=== PATIENT | female | born 1975 | race Caucasian/White ===

== ENCOUNTER 2017-05-30 14:36 | Emergency (ER) | payer OTHER ==
[2017-05-30 14:57] VITALS: BP 119/60
--- NOTE | 2017-05-30 15:34 | UC ---
Respiratory Complaint HPI - HPI Summary HPI Summary: Cough, congestion and hoarse voice for the past 4 days. 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 No Asthma or lung disease. No know fever but she has had chills. The cough is worse at night. - History of Current Complaint Chief Complaint: UCGeneralIllness Stated Complaint: COUGH Time Seen by Provider: 05/30/17 15:20 Hx Obtained From: Patient Hx Last Menstrual Period: ablation and partial hysterectomy ?: No Onset/Duration: Gradual Onset, Lasting Days Timing: Constant Severity Initially: Moderate Severity Currently: Moderate Character: Cough: Productive Aggravating Factors: Deep Breaths, Recumbent Position Alleviating Factors: Upright Position, Spontaneous Resolution Associated Signs And Symptoms: Positive: Chills, URI, Nasal Congestion, Hoarseness. Negative: Dyspnea, Hemoptysis, Dizziness, Calf Pain, Calf Swelling - Allergies/Home Medications Allergies/Adverse Reactions: Allergies Allergy/AdvReac Type Severity Reaction Status Date / Time NSAIDs Allergy See Comment Verified 05/30/17 14:56 Tramadol Allergy CHEST Verified 05/30/17 14:56 PRESSURE, SOB, RASH ENVIRONMENTAL Allergy RASH, Uncoded 05/30/17 14:56 PMH/Surg Hx/FS Hx/Imm Hx Previously Healthy: Yes Other History Of: Negative For: HIV, Hepatitis B, Hepatitis C, Anticoagulant Therapy - Surgical History Surgical History: Yes Surgery Procedure, Year, and Place: GALLBLADDER 2005, [place]. GASTRIC BYPASS, 2008, [facility]. C SECTION, 2010, [facility]. LEFT KNEE 07/2011, [facility]. Left knee, [place]. Left knee, [place]. APPENDECTOMY, 2011, [facility]. Partial Hysterectomy, 07/2015. Tonsillectomy, 07/2015 - Family History Known Family History: Positive: Other - COPD. Negative: Cardiac Disease, Hypertension, Diabetes - Social History Occupation: Employed Full-time Alcohol Use: Rare Substance Use Type: None Smoking Status (MU): Never Smoked Tobacco - Immunization History Most Recent Influenza Vaccination: NOT RECENT Review of Systems ENT: Sinus Congestion Respiratory: Cough All Other Systems Reviewed And Are Negative: Yes Physical Exam Triage Information Reviewed: Yes Appearance: Well-Appearing, No Pain Distress, Well-Nourished Vital Signs: Initial Vital Signs Temp 97.7 F 05/30/17 14:47 Pulse 72 05/30/17 14:47 Resp 18 05/30/17 14:47 BP 119/60 05/30/17 14:47 Pulse Ox 100 05/30/17 14:47 Vital Signs Reviewed: Yes Eyes: Positive: Conjunctiva Clear ENT: Positive: Nasal congestion, TMs normal, Hoarse voice. Negative: Pharynx normal, Pharyngeal erythema, Nasal drainage, TM bulging, TM dull, TM red, Tonsillar swelling, Tonsillar exudate, Trismus, Muffled voice, Sinus tenderness , Uvula midline Neck: Positive: Supple, Nontender, No Lymphadenopathy Respiratory: Positive: Chest non-tender, Lungs clear, Normal breath sounds, No respiratory distress, No accessory muscle use. Negative: Respiratory distress, Decreased breath sounds, Accessory muscle use, Crackles, Rhonchi, Stridor Cardiovascular: Positive: RRR, No Murmur, Pulses Normal, Brisk Capillary Refill Abdomen Description: Positive: Nontender, No Organomegaly, Soft Musculoskeletal: Positive: Strength Intact, ROM Intact, No Edema Neurological: Positive: Alert, Muscle Tone Normal, Fatigued Skin: Negative: rashes UC Diagnostic Evaluation - Laboratory O2 Sat by Pulse Oximetry: 100 Respiratory Course/Dx - Differential Dx/Diagnosis Provider Diagnoses: uri. laryngitis. Discharge - Discharge Plan Condition: Good Disposition: HOME Prescriptions: Acetaminop/Codeine 30 MG TAB* [Tylenol/Codeine 30 MG TAB*] 1 tab PO BEDTIME PRN #10 tab MDD 1 PRN Reason: Cough Benzonatate CAP* [Tessalon 100 MG CAP*] 100 mg PO TID PRN #20 cap PRN Reason: Cough GuaiFENesin DM* [Robitussin DM*] 10 ml PO Q6H PRN #120 ml PRN Reason: Cough Patient Education Materials: Upper Respiratory Infection (ED) Referrals: Trish Porter [Primary Care Provider] - If Needed
== END 2017-05-30 15:25 | disposition home or self-care (01) ==
LOC: UCCORT 14:36
DX: J06.9 Acute upper respiratory infection, unspecified (principal); J04.0 Acute laryngitis; Z88.6 Allergy status to analgesic agent; Z88.5 Allergy status to narcotic agent; Z90.49 Acquired absence of other specified parts of digestive tract; Z98.84 Bariatric surgery status; Z90.711 Acquired absence of uterus with remaining cervical stump
CPT/HCPCS: 99212; G0463

== ENCOUNTER 2017-06-24 16:35 | Emergency (ER) | payer OTHER ==
[2017-06-24 17:20] VITALS: BP 130/68
--- NOTE | 2017-06-24 17:39 | UC ---
Throat Pain/Nasal Nathaniel HPI - HPI Summary HPI Summary: Ongoing congestion, sinus pain, coughing, fatigued. Coughing fits at night. - History of Current Complaint Chief Complaint: UCGeneralIllness Stated Complaint: HEAD CONGESTION/SINUS/SORE THROAT Time Seen by Provider: 06/24/17 17:31 Hx Obtained From: Patient Hx Last Menstrual Period: ablation and partial hysterectomy ?: No Onset/Duration: Gradual Onset, Lasting Weeks - 4-6 Severity: Moderate Cough: Nonproductive Associated Signs & Symptoms: Positive: Dysphagia, Wheezing, Sinus Discomfort, Fever Related History: Seasonal Allergies - Allergies/Home Medications Allergies/Adverse Reactions: Allergies Allergy/AdvReac Type Severity Reaction Status Date / Time NSAIDs Allergy See Comment Verified 06/24/17 17:14 Penicillins Allergy Hives Verified 06/24/17 17:14 Tramadol Allergy CHEST Verified 06/24/17 17:14 PRESSURE, SOB, RASH ENVIRONMENTAL Allergy RASH, Uncoded 06/24/17 17:14 PMH/Surg Hx/FS Hx/Imm Hx Respiratory History: Asthma Other History Of: Negative For: HIV, Hepatitis B, Hepatitis C, Anticoagulant Therapy - Surgical History Surgical History: Yes Surgery Procedure, Year, and Place: GALLBLADDER 2005, [place]. GASTRIC BYPASS, 2008, [facility]. C SECTION, 2010, [facility]. LEFT KNEE 07/2011, [facility]. Left knee, [place]. Left knee, [place]. APPENDECTOMY, 2011, [facility]. Partial Hysterectomy, 07/2015. Tonsillectomy, 07/2015 - Family History Known Family History: Positive: Other - COPD. Negative: Cardiac Disease, Hypertension, Diabetes - Social History Occupation: Employed Full-time Lives: With Family Alcohol Use: Rare Substance Use Type: None Smoking Status (MU): Never Smoked Tobacco Have You Smoked in the Last Year: No - Immunization History Most Recent Influenza Vaccination: no yet Review of Systems ENT: Sore Throat, Nasal Discharge, Sinus Congestion, Sinus Pain/Tenderness Respiratory: Cough Neurological: Headache Is Patient Immunocompromised?: No All Other Systems Reviewed And Are Negative: Yes Physical Exam Triage Information Reviewed: Yes Appearance: Ill-Appearing, Pain Distress - sinus pain., Obese Vital Signs: Initial Vital Signs Temp 97.5 F 06/24/17 17:16 Pulse 85 06/24/17 17:16 Resp 16 06/24/17 17:16 BP 130/68 06/24/17 17:16 Pulse Ox 100 06/24/17 17:16 Vital Signs Reviewed: Yes Eyes: Positive: Conjunctiva Clear ENT: Positive: Pharynx normal, Nasal congestion, TMs normal Neck: Positive: Tenderness @ - left anterior cervical. Respiratory: Positive: Lungs clear, Wheezing - expiratory wheeze with coughing. Cardiovascular Exam: Normal Musculoskeletal Exam: Normal Neurological Exam: Normal Psychological Exam: Normal Skin Exam: Normal Throat Pain/Nasal Course/Dx - Differential Dx/Diagnosis Differential Diagnosis/HQI/PQRI: Otitis Media, Sinusitis, URI Provider Diagnoses: Acute URI. Acute sinusitis. Allergic rhinitis Discharge - Discharge Plan Condition: Stable Disposition: HOME Prescriptions: Cefuroxime 500 MG(NF) 500 mg PO BID #20 tab predniSONE TAB* [Deltasone TAB*] 20 mg PO DAILY #18 tab Patient Education Materials: Upper Respiratory Infection (ED), Sinusitis (ED), Cefuroxime (By mouth), Bronchospasm (ED), Prednisone (By mouth) Referrals: REGINE Rebolledo [Primary Care Provider] - Additional Instructions: [employer] SINUS RINSE: CHECK OUT AT [employer] Saline nasal wash helps with mucous, allergies and congestion. It can be used up to twice a day or only as needed. Use lukewarm tap water. It does not have to be sterilized or distilled water. Do 1/3 on each side and snort out of both nostrils. Repeat the process with 1/6 of the bottle on each side with snorting in between to finish the solution in the bottle For the fluticasone, tilt your head down to spray the medication back into the back of the nose. NASAL SPRAYS AND DROPS: Afrin in the PUMP/ MIST bottle (Get generic 12 hours nasal decongestant spray). Tilt your head down and look at the floor while doing a strong sniff with the spray. Decongestant nasal sprays and drops often give dramatic relief from congestion. They are often recommended for patients with sinus infection to assist with sinus drainage. Persons with high blood pressure should consult the doctor before using these nasal sprays. Afrin and Santana-Synephrine are common [id number] preparations. They should not be used for more than five days, as "rebound" congestion can occur - - the congestion flares as the drug wears off. A way of dealing with this rebound congestion problem is to medicate only one nostril each time, allowing the other nostril to recover from the medicine' s effects. When you no longer need the drug during the day, spray only one nostril each night. This helps you sleep well without severe rebound congestion. Call the doctor if you develop severe headache, palpitations, or chest pain.
[2017-06-24] MEDS ORDERED: predniSONE TAB* 20 MG PO ONE (17:41)
[2017-06-24] MEDS ORDERED: Ketorolac INJ* 60 MG/2 ML VIAL IM ONE (17:41)
[2017-06-24] MEDS ORDERED: ceFUROXime TAB(*) 250 MG PO ONE (17:41)
[2017-06-24] MEDS ORDERED: Albuterol HFA INHALER* 8 gm MDI INH ONE (17:41)
== END 2017-06-24 18:17 | disposition home or self-care (01) ==
LOC: UCCORT 16:35
DX: J06.9 Acute upper respiratory infection, unspecified (principal); J01.90 Acute sinusitis, unspecified; J30.9 Allergic rhinitis, unspecified; E66.9 Obesity, unspecified; Z88.6 Allergy status to analgesic agent; Z88.5 Allergy status to narcotic agent; Z88.0 Allergy status to penicillin
CPT/HCPCS: 99213; A9270-GY; G0463; J1885; J7512

== ENCOUNTER 2018-01-31 05:57 | Day surgery (SDC) | payer OTHER ==
--- NOTE | 2018-01-25 14:23 | HP ---
HISTORY AND PHYSICAL: DATE OF SURGERY: 01/31/18 SURGEON: Jayda Saini MD * (DICTATED BY ROBERT BROWN) PROCEDURE: Left knee arthroscopy with partial lateral meniscectomy, possible chondroplasty, possible synovectomy. CHIEF COMPLAINT: Left knee pain. HISTORY OF PRESENT ILLNESS: Ms. Tanner is a 42-year-old female with continued complaints of left knee pain and MRI confirms a meniscal tear. She elected to proceed with surgery. PAST MEDICAL HISTORY: Depression, anxiety, and GERD. PAST SURGICAL HISTORY: Gastric bypass, left knee arthroscopy x3, , appendectomy, tonsillectomy, cholecystectomy, and sinus surgery. CURRENT MEDICATIONS: 1. Escitalopram 20 mg daily. 2. Mirtazapine 30 mg q.h.s. 3. Propranolol 60 mg q.h.s. 4. Topiramate 100 mg daily. 5. Omeprazole 20 mg daily. ALLERGIES: TRAMADOL causing hives and racing heart, and IBUPROFEN. FAMILY HISTORY: COPD, heart disease, esophageal and stomach cancer. SOCIAL HISTORY: She is a 42-year-old female, she lives with her girlfriend and her children. She does not smoke or use drugs. Uses alcohol rarely. REVIEW OF SYSTEMS: A complete 14-point review of systems was reviewed with the patient and was positive for asthma and GERD. She denies history of DVT, PE, hepatitis, HIV, or anesthesia problems. PHYSICAL EXAMINATION GENERAL: She is well developed, well nourished in no acute distress. VITAL SIGNS: She stands 5 feet 7 inches tall, weighs 298 pounds. Her blood pressure is 120/82, heart rate is 76. HEENT: Normocephalic and atraumatic. NECK: Supple. No palpable lymph nodes. PULMONARY: The lungs are clear to auscultation bilaterally. CARDIO: Regular rate and rhythm. Strong S1 and S2. ABDOMEN: Soft, nontender, and nondistended. NEUROLOGICAL: She is alert and oriented x3. MUSCULOSKELETAL: Left lower extremity: The skin is intact. There are no open wounds or abrasions. There is a moderate joint effusion. Some tenderness over the lateral joint line, 10 to 120 degrees of flexion, positive Kell's, 2+ dorsalis pedis pulses and intact sensation. ASSESSMENT AND PLAN: Ms. Tanner is a 42-year-old female with continued complaints of left knee pain and MRI confirms a meniscal tear. She elected to proceed with left knee arthroscopy with partial meniscectomy, possible chondroplasty, and possible synovectomy. The surgery is scheduled for 01/31/[address] Saini discussed the risks and the benefits of surgery at today's visit and all of her questions were answered. She will follow up with Dr. Saini 2 weeks after the surgery. ROBERT BROWN [id number]/[facility] #: [id number] MTDSavanna
[2018-01-31] MEDS ORDERED: Famotidine IV* 10 MG/ML 2 ML (20 mg) IV ONE (06:00)
[2018-01-31] MEDS ORDERED: ceFAZolin 2 GM PREMIX (*) 2 GM/50 ML BAG IVPB ONE (06:09)
[2018-01-31] MEDS ORDERED: Famotidine IV* 10 MG/ML 2 ML (20 mg) ONE (06:09)
[2018-01-31] MEDS ORDERED: ceFAZolin 1 GM in Dextrose (*) 1 GM/50 ML BAG IVPB ONE (06:09)
[2018-01-31] MEDS ORDERED: Buffered Lidocaine 0.9% SYRIN* 5 ML/SYR SYRINGE ONE (06:10)
[2018-01-31] MEDS ORDERED: Bupivacaine 0.5% SDV PF* 30ML VIAL ONE (07:00)
[2018-01-31] MEDS ORDERED: EPINEPHRINE 1 MG/ML 1 ML VIAL ONE (07:00)
[2018-01-31] MEDS ORDERED: methylPREDNISolone ACETATE 80* 80 MG/ML 1 ML VIAL ONE (07:00)
[2018-01-31] MEDS ORDERED: Midazolam* 1 MG/ML 5 ML VIAL (5 MG) ONE (07:26)
[2018-01-31] MEDS ORDERED: fentaNYL* 50 MCG/ML 2 ML VIAL (100 MCG VIAL) ONE (07:26)
[2018-01-31] MEDS ORDERED: Dexamethasone IV* 4 MG/ML 1 ML (4 MG) ONE (08:03)
[2018-01-31] MEDS ORDERED: Ketorolac INJ* 30 MG/ML 1 ML VIAL ONE (08:03)
[2018-01-31] MEDS ORDERED: DiMENhydriNATE IV* 50 MG/ML VIAL ONE (08:03)
[2018-01-31] MEDS ORDERED: Propofol* 10 MG/ML 20 ML BTL IV PUSH ONE (08:03)
[2018-01-31] MEDS ORDERED: Lidocaine 2% PF * 5 ML VIAL ONE (08:03)
[2018-01-31] MEDS ORDERED: Naloxone* 0.4 MG/ML 1 ML VIAL IV PRN (08:18)
[2018-01-31] MEDS ORDERED: DiMENhydriNATE IV* 50 MG/ML VIAL IV PUSH ONE (08:20)
[2018-01-31] MEDS ORDERED: HYDROmorphone INJ* 0.5 MG/0.5 ML SYRINGE ONE ×2 (08:35→09:16)
[2018-01-31] MEDS: HYDROmorphone INJ* 0.5 MG/0.5 ML SYRINGE IV PRN ×3 (08:40→09:16)
[2018-01-31] MEDS ORDERED: oxyCODONE/Acetamin 5/325 MG* TAB ONE (08:43)
[2018-01-31] MEDS: oxyCODONE/Acetamin 5/325 MG* TAB PO PRN ×2 (08:44→08:45)
[2018-01-31 09:43] VITALS: BP 112/72
[2018-01-31] MEDS ORDERED: Buffered Lidocaine 0.9% SYRIN* 5 ML/SYR SYRINGE INTRADERM ONE (10:26)
--- NOTE | 2018-02-01 11:43 | OP ---
OPERATIVE REPORT: DATE OF OPERATION: 01/31/18 - [facility] DATE OF : 79 ATTENDING SURGEON: Jayda Saini MD [employer]ICE ATTENDANT: ROBERT Simon Mr. Herring did help throughout the procedure with preparation of the leg, wound retraction, manipulation of the knee and wound closure. ANESTHESIOLOGIST: Dr. Hernandez. ANESTHESIA: General. PRE-OP DIAGNOSIS: Left knee pain with lateral meniscal tear and mild to moderate osteoarthritis. POST-OP DIAGNOSIS: Left knee lateral meniscal tear and moderate to severe degenerative osteoarthritis in the patellofemoral compartment. OPERATIVE PROCEDURE: Left knee arthroscopy with partial lateral meniscectomy and patellofemoral chondroplasty. COMPLICATIONS: None. ESTIMATED BLOOD LOSS: Less than 25 cc. SPECIMEN: None. BRIEF HISTORY/INDICATION: Ms. Tanner is a 42-year-old female with continued left knee pain and mechanical symptoms in the left knee along the lateral joint line. A repeat MRI did indicate there was a lateral meniscal tear. The patient failed conservative treatment with antiinflammatories, pain medication and intraarticular injection. Due to continued pain and decreased quality of life, she elected to undergo left knee arthroscopy with partial lateral meniscectomy, possible chondroplasty, possible synovectomy. Informed consent was obtained from the patient. She understood the risk of surgery included but were limited to bleeding, infection, damage to nearby structures, continued pain , need for further surgery, retear of the meniscus, progression of arthritis, stroke, heart attack, blood clot and . She wished to proceed. INTRAOPERATIVE FINDINGS: Intraoperatively, the patient was noted to have grade 3 and 4 Outerbridge cartilage changes in the patellofemoral compartment, grade 2 and 3 Outerbridge cartilage changes in the medial compartment. She did have a small radial tear along the anterior and posterior horn of the lateral meniscus. She had significant amount of inflammatory tissue along the anteromedial and anterolateral joint line. DESCRIPTION OF PROCEDURE: Ms. Tanner was identified in the preanesthesia unit. Her left lower extremity was marked as the operative side. Informed consent was signed and placed in the chart. The patient was taken to the operating room and placed under general anesthesia without difficulty. Left lower extremity was prepped and draped in the usual sterile fashion. Preop time -out was made to correctly identify the patient side and site. Appropriate perioperative antibiotics were given within one hour of incision. A standard anterolateral portal incision was made with a 10-blade and carried down through the capsule. Trocar was introduced. Light and water sources were turned on. A tour of the knee joint was performed. Suprapatellar pouch had no obvious abnormality. Patellofemoral compartment showed grade 3 and 4 Outerbridge cartilage changes in the patellofemoral compartment. Grade 2 and 3 Outerbridge cartilage changes in the medial compartment. There was significant amount of anterior synovitis. The medial meniscus showed no obvious meniscal tear. Lateral meniscus had a radial tear with some anterior displacement of a fragment along the posterior horn and anterolateral horn. Lateral gutter and medial gutter showed no loose body or plica. ACL and PCL appeared to be intact. Under direct visualization, a medial portal incision was made. Probe was introduced and a second tour of the knee joint was performed. No additional findings were noted. Radiofrequency ablation wand and shaver were used to remove some inflammatory tissue along the anterior joint line. Radiofrequency ablation wand was used to smooth any cartilage flapping along the patella in a conservative fashion. Next, a straight bitter and shaver were used to perform partial lateral meniscectomy. A radial tear anteriorly and along the posterior horn was removed in the red-white zone. Further probing of the lateral meniscus showed no additional tears or loose fragments. The knee was copiously irrigated with sterile saline. All instruments were removed. Incisions were closed using 3-0 nylon suture. Intraarticular injection of 80 mg of Depo-Medrol and 6 cc 0.25% Marcaine was placed in the knee joint. The patient tolerated the procedure well and had no complications. [id number]/[facility] #: [id number] [facility] CENTERSavanna
== END 2018-01-31 10:23 | disposition home or self-care (01) ==
LOC: OR 05:57
PROVIDERS: ATTEND Orthopaedic Surgery Adult Reconstructive Orthopaedic Surgery
DX: M23.204 Derangement of unspecified medial meniscus due to old tear or injury, left knee (principal); M17.12 Unilateral primary osteoarthritis, left knee; F41.8 Other specified anxiety disorders; K21.9 Gastro-esophageal reflux disease without esophagitis; E66.01 Morbid (severe) obesity due to excess calories
CPT/HCPCS: 87070; 87073; 87205; A9270-GY; J0690; J1040; J1100; J1170; J1240; J1885; J2250; J2704; J3010

== ENCOUNTER 2018-04-25 07:45 | Day surgery (SDC) | payer OTHER, MEDICAID ==
[~2018-04-25 07:45] MED LIST: Buffered Lidocaine 0.9% SYRIN* 5 ML/SYR SYRINGE INTRADERM ONE; Sodium Citrate/Citric Acid* 15 ML UDC PO ONE
[2018-04-25] MEDS ORDERED: Sodium Citrate/Citric Acid* 15 ML UDC ONE (07:50)
[2018-04-25] MEDS ORDERED: Clindamycin 900 MG/D5W BAG(*) 900 MG/50 ML BAG IVPB ONE (07:50)
[2018-04-25] MEDS ORDERED: fentaNYL* 50 MCG/ML 2 ML VIAL (100 MCG VIAL) ONE ×3 (07:59→10:32)
[2018-04-25] MEDS ORDERED: Midazolam* 1 MG/ML 2 ML VIAL (2 MG) ONE (07:59)
[2018-04-25] MEDS ORDERED: methylPREDNISolone ACETATE 80* 80 MG/ML 1 ML VIAL ONE (08:16)
[2018-04-25] MEDS ORDERED: EPINEPHRINE 1 MG/ML 1 ML VIAL ONE (08:17)
[2018-04-25] MEDS ORDERED: Bupivacaine 0.5% SDV PF* 30ML VIAL ONE (08:17)
[2018-04-25] MEDS ORDERED: Propofol* 10 MG/ML 20 ML BTL IV PUSH ONE (08:40)
[2018-04-25] MEDS ORDERED: Lidocaine 2% PF * 5 ML VIAL ONE (08:41)
[2018-04-25] MEDS ORDERED: Dexamethasone IV* 4 MG/ML 1 ML (4 MG) ONE (08:48)
[2018-04-25] MEDS ORDERED: Naloxone* 0.4 MG/ML 1 ML VIAL IV PRN (09:12)
[2018-04-25] MEDS: fentaNYL* 50 MCG/ML 2 ML VIAL (100 MCG VIAL) IV PRN ×3 (09:52→10:33)
[2018-04-25] MEDS ORDERED: oxyCODONE/Acetamin 5/325 MG* TAB ONE ×2 (10:10→10:11)
[2018-04-25 11:16] VITALS: BP 122/65
--- NOTE | 2018-04-26 08:01 | OP ---
DATE OF OPERATION: 04/25/18 - [facility] DATE OF : 79 SURGEON: Jayda Saini MD STUDIO CONTROL OPERATOR: ROBERT Simon. Mr. Herring did help throughout the procedure with preparation of the leg, manipulation of the knee and wound closure. ANESTHESIOLOGIST: Dr. Pereyra. ANESTHESIA: General. PRE-OP DIAGNOSIS: Severe right knee pain with medial and lateral meniscal tear. POST-OP DIAGNOSES: Right knee lateral meniscal tear, moderate arthritic changes in the medial and patellofemoral compartment. OPERATIVE PROCEDURE: Right knee arthroscopy with partial lateral meniscectomy, medial and patellofemoral chondroplasty, anterior synovectomy. COMPLICATIONS: None. ESTIMATED BLOOD LOSS: Less than 25 cc. SPECIMENS: None. BRIEF HISTORY/INDICATIONS: Ms. Tanner is a 42-year-old female with 2 months of increasingly severe right knee pain. She thought she had mechanical symptoms consistent with meniscal tear. She had swelling. She failed conservative treatment and wished to proceed with right knee arthroscopy. Physical exam was consistent with meniscal tear and radiograph showed some minimal degenerative changes. Informed consent was obtained from the patient. She understood the risks of surgery included but were not limited to bleeding, infection, damage to nearby structures, continued pain, need for further surgery, retear of the meniscus, stroke, heart attack, blood clot, and . She wished to proceed. INTRAOPERATIVE FINDINGS: Intraoperatively, the patient was noted to have significant amount of anterior synovitis. She had cartilage sprain and flapping in the medial femoral condyle as well as the medial and lateral patellar facet. She had a radial tear in the posterior horn of the lateral meniscus. DESCRIPTION OF PROCEDURE: Ms. Tanner was identified in the preanesthesia unit. Her right lower extremity was marked as the correct operative side. Informed consent was signed and placed in the chart. The patient was taken to the operating room and placed under general anesthesia. Right lower extremity was prepped and draped in the usual sterile fashion. Preop time-out was made to correctly identify the patient's side and site. Appropriate perioperative antibiotics were given within 1 hour of incision. A standard 0.5 cm inferolateral portal incision was made with a 10 blade and carried down to the capsule. Trocar was introduced. As soon as light and water sources were turned on, there was immediate visualization of the suprapatellar pouch. A tour of the knee joint was performed. Suprapatellar pouch had no obvious abnormality. Patellofemoral compartment showed frayed and fissured cartilage along the medial and lateral patellar facets with cartilage flapping. These were grade 3 and 4 Outerbridge cartilage changes. The medial gutter showed no loose body or plica. Medial compartment showed no obvious meniscal tear. There was a large area of cartilage flapping with exposed subchondral bone along the medial femoral condyle. ACL and PCL appeared to be intact. The knee was placed in a figure-4 position. There was a displaced radial type tear of the posterior horn of the lateral meniscus that was visible. There were minimal degenerative changes in the compartment. Lateral gutter showed no loose bodies or plica. Under direct visualization, a medial portal incision was made. Probe was introduced and a second tour of the knee joint was performed. No additional findings were noted. The radiofrequency ablation wand and shaver were used to perform an anterior synovectomy. A large amount of the anterior synovitis was carefully excised. This greatly improved visualization of the knee joint. Radiofrequency ablation wand and shaver were then used to perform a conservative chondroplasty along the medial patellar and lateral patellar facet , any frayed or flapping cartilage was carefully smoothed. In the medial compartment, there was a large cartilage flap, which was carefully smoothed with the radiofrequency ablation wand. The knee was placed in the figure-4 position. Straight biter and shaver were used to perform partial lateral meniscectomy. A smooth border of the posterior horn of the lateral meniscus was obtained. At this point, the probe was introduced and both medial and lateral meniscus were probed carefully for any additional tears, none were noted. The knee was copiously irrigated with sterile saline. The instrument was removed. Incisions were closed using 3-0 nylon suture. Intraarticular injection of 80 mg of Depo-Medrol and 6 cc of 0.25% Marcaine was placed in the knee joint. The patient's incisions were covered using sterile Xeroform, 4x4's , and Webril. Jethro wrap and cold pack were placed over this. The patient's anesthesia was reversed without difficulty. She was taken to the PACU in stable condition. Intended weightbearing will be weightbearing as tolerated. Intended DVT prophylaxis will be Lovenox for 2 weeks. [id number]/[facility] #: [id number] [facility] ISLANDaSvanna
== END 2018-04-25 11:14 | disposition home or self-care (01) ==
LOC: OR 07:45
PROVIDERS: ATTEND Orthopaedic Surgery Adult Reconstructive Orthopaedic Surgery
DX: S83.241A Other tear of medial meniscus, current injury, right knee, initial encounter (principal); M25.461 Effusion, right knee; S83.261A Peripheral tear of lateral meniscus, current injury, right knee, initial encounter; M25.561 Pain in right knee; Z88.8 Allergy status to other drugs, medicaments and biological substances; X58.XXXA Exposure to other specified factors, initial encounter
CPT/HCPCS: A9270-GY; J1040; J1100; J2250; J2704; J3010

== ENCOUNTER 2018-10-17 12:21 | Emergency (ER) | payer BC, MEDICAID, OTHER ==
--- OUTSIDE RECORDS SUMMARY | 2018-10-17 12:32 | XMS REPORT | Continuity of Care Document ---
:1975 External Reference #:[id number] Author Name Robles Meadows DO, MPH Address [address] [place] [address], [address] [place] [address] Care Team Providers Name Role Phone Felipa Trivedi M.D. 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 Primary Care Physician Unavailable Payers Date Identification Numbers Payment Provider Subscriber Policy Number: [id number] For Life Ammy Tanner PayID: [id number] [address] [place] [address] Policy Number: [id number] Medicaid [place] Ammy Tanner PayID: [id number] [address] [place] [address] Advance Directives Description No Information Available Problems Description No Information Family History Date Family Member(s) Observation Comments Father due to Esophagus Cancer () Mother 70 Children 3 Siblings 2 Social History Type Date Description Comments Sex Unknown Marital Status Lives With Roommate Lives With Children 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 ETOH Use Occasionally consumes beer Tobacco Use Start: Unknown Patient is a current smoker, smokes some days Recreational Drug Use Denies Drug Use Smoking Status Reviewed: 09/25/18 Patient is a current smoker, smokes some days Allergies, Adverse Reactions, Alerts Date Description Reaction Status Severity Comments 09/13/2018 Penicillin Active 09/13/2018 Tramadol Active 09/13/2018 Ibuprofen Active 09/13/2018 Dramamine Active Medications Medication Date Status Form Strength Qnty SIG Indications Ordering Provider Nucynta 09/25/ Active Tablets 50mg 30tabs si by Nanda Meadows mouth DO Robles, every 12 MPH hours as directed chronic pain patient Omeprazole / Active Capsules 20mg si by Unknown 0000 DR mouth every day as directed Escitalopram / Active Tablets 20mg 1 by mouth Unknown Oxalate 0000 at night Mirtazapine 00/00/ Active Tablets 30mg 1 by mouth Unknown 0000 every night Propranolol HCL 00/ Active Tablets 60mg 1 by mouth Unknown 0000 every day Topiramate 0000/ Active Tablets 100mg 60tabs 1 by mouth Unknown 0000 every night Oxycodone HCL 09/13/ Hx Tablets 5mg 45tabs 1 by mouth Abdiel, 2019 - every 8 DO Robles, 09/25/ hours as MPH 2019 directed Immunizations Description No Information Available Vital Signs Date Vital Result Comment 09/25/2018 9:38am BP Systolic 132 mmHg BP Diastolic 84 mmHg Heart Rate 86 /min Respiratory Rate 20 /min Height 67 inches 5'7" Weight 312.00 lb Pain Level 9 Pain at this time. Pain Level With Medicine 9 on average with meds Pain Level Without Medicine 10 05/08 without meds BMI (Body Mass Index) 48.9 kg/m2 09/13/2018 9:15am BP Systolic 128 mmHg BP Diastolic 78 mmHg Heart Rate 76 /min Respiratory Rate 20 /min Height 67 inches 5'7" Weight 310.00 lb Pain Level 9 Pain at this time. Pain Level Without Medicine 10 05/08 without meds BMI (Body Mass Index) 48.5 kg/m2 Results Description No Information Available Procedures Description No Information Available Encounters Description No Information Available Plan of Treatment 09/13/2018 - Robles Meadows DO, MPHG89.29 Other chronic painComments:Chronic Intractable Pain. Symptoms and complaints discussed and reviewed today. Begin trial of adequate and appropriate Opioid Pain Management as well as non-opioid treatment options - New Medications listed below.M54.5 Low back painComments: Chronic Intractable Pain. Symptoms and complaints discussed and reviewed today. Begin trial of adequate and appropriate Opioid Pain Management as well as non- opioid treatment plan - New Medications listed below.M25.561 Pain in right kneeComments:Chronic Intractable Pain. Symptoms and complaints discussed and reviewed today. Begin trial of adequate and appropriate Opioid Pain Management as well as non-opioid treatment plan - New Medications listed below.M25.562 Pain in left kneeComments:Symptoms and complaints discussed and reviewed today. Begin adequate and appropriate medical pain Management - New Medications listed below.F17.210 Nicotine dependence, cigarettes, uncomplicatedComments:Patient encouraged to continue to try to stop smoking, considering their co-morbidities and to follow up with their PCP. Informed that smoking affects healing, the metabolism of medications in a negative way and interferes with pain receptors. Pain is directly and negatively effected by smoking.Z13.31 Encounter for screening for depressionComments:PHQ-9 Depression Screen administered today, results were Positive at this time. Followed by PCP. Will follow as pertains to their pain. Patient seems to be stable today. Reassurance and counseling. 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 ~I_A urine drug test (UDT) was ordered for this patient and collected on site today. Creatinine has been ordered as well for specimen validity, not for kidney function. Preliminary UDT results are not final and should not be used to determine patient care or plan of treatment. Initially a qualitative immunoassay screen will be done. Any inconsistent or positive findings will be further tested with a more comprehensive quantitative confirmation LCMS study. It is part of the treatment process of prescribing controlled substances and is considered standard of care.~i_Z71.89 Other specified counselingComments:New patient counseled in regards to office practice. They were educated about our answering services. What to do if they should have to visit the ER or have any adverse reactions to medications we prescribe. Patient understands that they have to fill his prescription at one pharmacy. If there is a change they must call us and let us know what new pharmacy they will be using. They understand and agree that they must present within 24 hours of a phone call for a random urine screen and a pill count.Patient understands that if the medication needs a prior authorization that it can take up to 72 hours to complete. Opioid Risk Tool (O.R.T.) was used in this patient's initial in take. (see EMR for complete scanned document) Patient Health History, and Patient Pain Assessment from New Patient packetreviewed and scanned into EMR as well.Z71.3 Dietary counseling and surveillanceComments:Regular, small, nutritious meals higher in protein encouraged spaced evenly throughout the day. Count calories. Keep a food log. Hydrate.AllNew Medication:Oxycodone HCL 5 mg - 1 by mouth every 8 hours as directedComments:Chronic intractable pain - Begin trial of adequate and appropriate Opioid Pain Management - New Medications listed below; injection therapy, osteopathic manipulation, PT / modalities, and consults as needed to manage chronic pain.Non - opioid pain management discussed and options provided.Side effectsdiscussed; anticipatory guidance given. Patient clearly understand and agree with all medical treatments and suggestions. All medicines prescribed are adequate and appropriate for this patient's complaint of pain, medical history, physical, and personal goals.Goals of Treatment are to provide adequateand appropriate multidisciplinary medical pain management to increase/ maintain patient's quality oflife and functionality while maintaining satisfactory side effect profile and minimizing longterm end-organ damage. Importance of regular nutrition throughout the day discussed.Activity as toleratedContinue with PCP
--- OUTSIDE RECORDS SUMMARY | 2018-10-17 12:32 | XMS REPORT | Continuity of Care Document ---
:1975 External Reference #:[id number] Author Name Robles Meadows DO, MPH Address [address] [place] [address], [address] [place] [address] Care Team Providers Name Role Phone Felipa Trivedi M.D. 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 Primary Care Physician Unavailable Payers Date Identification Numbers Payment Provider Subscriber Policy Number: [id number] For Life Ammy Tanner PayID: [id number] [address] [place] [address] Policy Number: [id number] Medicaid [place] Ammy Tanner PayID: [id number] [address] [place] [address] Advance Directives Description No Information Available Problems Description No Information Family History Date Family Member(s) Observation Comments Father due to Esophagus Cancer () Mother 70 Children 3 Siblings 2 Social History Type Date Description Comments Sex Unknown Marital Status Lives With Roommate Lives With Children 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 Symptoms and complaints discussed and reviewed today. No significant changes in physical findings. Continue current medical pain management.M54.5 Low back painComments:Chronic. Symptoms and complaints discussed and reviewed today.No changes in physical findings. Patient is stable and comfortable when current medical therapy is rendered.M25.561 Pain in right kneeComments:Chronic.Symptoms and complaints discussed and reviewed today. No significant changes in physical findings. Continue current medical pain management.M25.562 Pain in left kneeComments:Chronic.Symptoms and complaints discussed and reviewed today. No significant changes in physical findings. Continue current medical pain management.Z79.891 [facility] (current) use of opiate analgesicNew Labs:Urine Drug Screen, Ordered: 09/25/18Comments:Urine drug screen sample taken today to monitor opiate use and to monitor use of illicit substances.Will discuss results at next appointment.The following tests were ordered:6 AM, AMPH, CARLEY, STARLA, BUP, CARIS, COCM, COT, ETG, FENT, MCSHSG, OPI, OXY, PCP, TAPEN, XTSY, ZOLP. ~I_A urine drug test(UDT) was ordered for this patient and collected on site today. Creatinine has been ordered as wellfor specimen validity, not for kidney function. Preliminary UDT results are not final and should not be used to determine patient care or plan of treatment. Initially a qualitative immunoassay screenwill be done. Any inconsistent or positive findings will be further tested with a more comprehensive quantitative confirmation LCMS study. It is part of the treatment process of prescribing controlledsubstances and is considered standard of care.~i_Z71.89 Other specified counselingComments: Patient counseled to not use substances for pain relief other than those prescribed, to follow directions and to take medications only as they are prescribed.Reviewed Medication Agreement and requirements for patient to continue receiving opioid therapy. Patient clearly understands and agrees. I will perform confirmatory labs and monitor closely. ~B_She was advised to stop the medication and tobring it with her to the appointment today. Patient did not bring her medication, Oxycodone 5mg withher. " I totally forgot to bring my medication, I walked out of the house without it." Patient will NOT get any medication until she returns her Oxycodone medication.~b_AllNew Medication:Nucynta 50 mg - si by mouth every 12 hours as directed chronic pain patientComments:All above symptoms and complaints discussed as well as diagnoses reviewed.Continue trial of opioid pain management - note changes below ; injection therapy, osteopathic manipulation (OMT), PT / modalities, and consults as needed to manage chronic pain.Side effects discussed; anticipatory guidance given. Patient clearly understands and agrees with all medical treatments and suggestions. All medicines prescribed are adequate and appropriate for this patient's complaint of pain, medical history, physical, and personal goals.Goals of Treatment are to provide adequate and appropriate multidisciplinary medical pain management to increase/ maintain patient's quality of life and functionality while maintaining satisfactory side effect profile and minimizing manager terminal end-organ damage. Activity as toleratedContinue with PCP
--- OUTSIDE RECORDS SUMMARY | 2018-10-17 12:33 | XMS REPORT | Continuity of Care Document ---
:1975 External Reference #:[id number] Author Name Chi Flores MD Address [address] [place] [address] Care Team Providers Name Role Phone Felipa Trivedi M.D. 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 Primary Care Physician Unavailable Payers Date Identification Numbers Payment Provider Subscriber Policy Number: [id number] [facility] Name: [employer] [address] PayID: [id number] [place] [address] Policy Number: [id number] Medicaid Neetu Darling PayID: [id number] [address] [place] [address] Advance Directives Description No Information Available Problems Date Description Provider Status Onset: 02/01/2012 Radial styloid tenosynovitis Thai Cornelius MD, FACS Active Onset: 08/16/2015 Knee pain Ori Baig M.D. Active Onset: 08/16/2015 Chondromalacia of patella Ori Baig M.D. Active Onset: 07/13/2016 Anemia Valerio Dowell DO Active Onset: 07/13/2016 Cobalamin deficiency Valerio Dowell DO Active Onset: 07/13/2016 Iron deficiency anemia Valerio Dowell DO Active Onset: 07/13/2016 Acute gastritis Valerio Dowell DO Active Onset: 08/14/2017 Closed fracture of phalanx of Ori Baig M.D. 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 Hand Dominance Right-handed Tobacco Use Start: Unknown End: Quit Unknown ETOH Use Rarely consumes alcohol Recreational Drug Use Never Used Drugs Tobacco Use Start: Unknown End: Patient is a former Unknown smoker Smoking Status Reviewed: 09/24/18 Patient is a former smoker Allergies, Adverse Reactions, Alerts Date Description Reaction Status Severity Comments 02/01/2012 Tramadol can't breath Active 10/11/2015 NSAIDs Active gastric bypass Medications Medication Date Status Form Strength Qnty SIG Indications Ordering Provider Gabapentin 09/25/19 Active Capsules 100mg 90cap take 1 J41.0 Kheti, 19 s tablet MD Chi three times a day. Advair Diskus 09/24/19 Active Aerosol 100-50mcg 1disk 1 Kheti, 19 /Dose us inhalation MD Chi twice daily, please rinse your mouth after every use. Topiramate Active Tablets 100mg 1 by mouth Unknown 00 at bedtime Propranolol HCL Active 50mg 1 Tab Daily Unknown 00 Mirtazapine Active Tablets 30mg 1 Tab Daily Compagni, 00 ROBERT Chambers Escitalopram Active Tablets 20mg 1 Tab by Dill, Oxalate 00 mouth daily MD Una Omeprazole Active Capsules 20mg 1 by mouth Unknown 00 DR at bed Acetaminophen-C 09/03/19 Hx Tablets 300-60mg 28tab Take 1 Kheti, odeine 19 - s tablet MD Chi 09/24/19 twice a day 19 as needed for cough. Doxycycline 09/02/19 Hx Capsules 100mg 14cap take 1 Kheti, Monohydrate 19 - s tablet MD Chi Unknown twice a day for 7 days. Gabapentin 08/20/19 Hx Capsules 100mg 90cap take 1 J41.0 Kheti, 19 - s tablet MD Chi Unknown three times a day. [place] 10/10/19 Hx Tablets 5-325mg 20tab 1 tab by Pompo, 18 - s mouth every Ori, 12/19/19 6 hours as M.D. 18 needed pain [place] 08/14/19 Hx Tablets 5-325mg 20tab 1 tab by Pompo, 18 - s mouth every Ori, 10/10/19 6 hours as M.D. 18 needed pain Voltaren 11/15/19 Hx Gel 1% 100gm apply to Pompo, 16 - affected Ori, 07/27/20 area daily M.D. 16 Meloxicam 10/06/19 Hx Tablets 15mg 60tab 1 by mouth Pompo, 16 - s every day Ori, 10/11/19 M.D. 16 [place] 09/01/19 Hx Tablets 5-325mg 60tab 1 tab by Pompo, 16 - s mouth every Ori, Unknown 8 hours M.D. needed for pain Percocet Hx Tablets 10-325mg Unknown 08/16/19 16 Citracal Hx Tablets Unknown Maximum 08/16/19 16 Multivitamins Hx Capsules Unknown 08/16/19 16 Prilosec Hx Capsules 20mg Unknown 00 - DR 08/16/19 16 Prozac Hx Capsules 40mg Unknown 08/16/19 16 Tylenol Hx Tablets 325mg as needed Unknown - 09/13/19 18 Venlafaxine HCL Hx Tablets 150mg 1 Tab Daily Unknown ER 00 - ER 24HR Unknown Lyrica Hx 100mg 1 Tab Daily Unknown 08/14/19 18 Vitamin Hx I Tab Daily Unknown B-Complex 100 00 - Unknown Bupropion HCL Hx Tablets 150mg 1 Tab Daily VISHAL Fontana (XL) 00 - ER 24HR Trish, 08/14/19 PA 18 Acetaminophen-C Hx Tablets 300-30mg 2 by mouth Unknown odeine #3 00 - every 6 09/04/19 hours as 18 needed. Max Dose 8 Cetirizine HCL Hx Tablets 10mg 1 Tab daily Monse Espinoza MD 05/22/20 18 Medications Administered in Office Medication Date Status Form Strength Qnty SIG Indications Ordering Provider Euflexxa 2mL Administered Injection Pompo, prefilled 018 Katrin Rehman syringe Euflexxa 2mL Administered Injection Murray, prefilled 018 Isabella S., syringe RPAC Euflexxa 2mL Administered Injection Pompo, prefilled 018 Katrin Rehman syringe Immunizations Description No Information Available Vital Signs Date Vital Result Comment 09/24/2018 8:54am BP Systolic Sitting Left Arm 118 mmHg BP Diastolic Sitting Left Arm 86 mmHg Respiratory Rate 18 /min Height 67 inches 5'7" Weight 314.00 lb BMI (Body Mass Index) 49.2 kg/m2 BSA (Body Surface Area) 2.45 m2 Dequincy body weight in kilograms 61 kg 08/20/2018 3:11pm BP Systolic Sitting Right Arm 121 mmHg BP Diastolic Sitting Right Arm 76 mmHg Heart Rate 73 /min Respiratory Rate 16 /min Height 67 inches 5'7" Weight 308.00 lb BMI (Body Mass Index) 48.2 kg/m2 BSA (Body Surface Area) 2.43 m2 Dequincy body weight in kilograms 61 kg O2 % BldC Oximetry 99 % 12/25/2017 2:13pm BP Systolic 132 mmHg BP Diastolic 82 mmHg Body Temperature 98.8 F Heart Rate 77 /min Respiratory Rate 13 /min Height 67 inches 5'7" Weight 294.00 lb BMI (Body Mass Index) 46.0 kg/m2 BSA (Body Surface Area) 2.38 m2 Dequincy body weight in kilograms 61 kg 12/18/2017 8:35am BP Systolic 119 mmHg BP Diastolic 73 mmHg Body Temperature 97.2 F Height 67 inches 5'7" Weight 291.00 lb BMI (Body Mass Index) 45.6 kg/m2 BSA (Body Surface Area) 2.37 m2 Dequincy body weight in kilograms 61 kg 11/20/2017 9:17am BP Systolic 117 mmHg BP Diastolic 78 mmHg Body Temperature 98.9 F Heart Rate 64 /min Respiratory Rate 15 /min Height 67 inches 5'7" Weight 292.00 lb BMI (Body Mass Index) 45.7 kg/m2 BSA (Body Surface Area) 2.38 m2 Dequincy body weight in kilograms 61 kg Pain Level 9 11/08/2017 10:10am BP Systolic 137 mmHg BP Diastolic 83 mmHg Body Temperature 98.6 F Heart Rate 76 /min Respiratory Rate 16 /min Height 67 inches 5'7" Weight 290.00 lb BMI (Body Mass Index) 45.4 kg/m2 BSA (Body Surface Area) 2.37 m2 Dequincy body weight in kilograms 61 kg Pain Level 9 10/23/2017 8:32am BP Systolic 143 mmHg BP Diastolic 80 mmHg Body Temperature 98.3 F Heart Rate 64 /min Respiratory Rate 15 /min Height 67 inches 5'7" Weight 290.00 lb BMI (Body Mass Index) 45.4 kg/m2 BSA (Body Surface Area) 2.37 m2 Dequincy body weight in kilograms 61 kg Pain Level 9 10/09/2017 8:31am Body Temperature 99.2 F Heart Rate 88 /min Respiratory Rate 16 /min Height 66.75 inches 5'6.75" Weight 292.00 lb BMI (Body Mass Index) 46.1 kg/m2 BSA (Body Surface Area) 2.37 m2 Dequincy body weight in kilograms 61 kg Pain Level 1 09/13/2017 9:37am BP Systolic Sitting Right Arm 121 mmHg BP Diastolic Sitting Right Arm 71 mmHg Body Temperature 98.7 F Heart Rate 68 /min Respiratory Rate 19 /min Height 66.75 inches 5'6.75" Weight 284.00 lb BMI (Body Mass Index) 44.8 kg/m2 BSA (Body Surface Area) 2.34 m2 Dequincy body weight in kilograms 61 kg 08/30/2017 10:37am BP Systolic Sitting Left Arm 111 mmHg BP Diastolic Sitting Left Arm 75 mmHg Body Temperature 97.8 F Heart Rate 67 /min Respiratory Rate 19 /min Height 66.75 inches 5'6.75" Weight 278.00 lb BMI (Body Mass Index) 43.9 kg/m2 BSA (Body Surface Area) 2.32 m2 Dequincy body weight in kilograms 61 kg 08/14/2017 11:04am BP Systolic 138 mmHg BP Diastolic 86 mmHg Body Temperature 96.6 F Heart Rate 69 /min Respiratory Rate 16 /min Height 66.75 inches 5'6.75" Weight 284.00 lb BMI (Body Mass Index) 44.8 kg/m2 BSA (Body Surface Area) 2.34 m2 Dequincy body weight in kilograms 61 kg 08/08/2016 9:35am BP Systolic 130 mmHg BP Diastolic 79 mmHg Body Temperature 98.1 F Heart Rate 73 /min Respiratory Rate 18 /min Weight 252.12 lb O2 % BldC Oximetry 99 % 07/27/2016 9:29am BP Systolic 118 mmHg BP Diastolic 69 mmHg Body Temperature 96.5 F Heart Rate 73 /min Respiratory Rate 20 /min Weight 247.50 lb O2 % BldC Oximetry 100 % Pain Level 0 07/13/2016 9:39am BP Systolic 124 mmHg BP Diastolic 75 mmHg Body Temperature 97.1 F Heart Rate 85 /min Respiratory Rate 20 /min Weight 242.00 lb O2 % BldC Oximetry 99 % 08/18/2015 10:32am BP Systolic Sitting Left Arm 131 mmHg BP Diastolic Sitting Left Arm 85 mmHg Heart Rate 94 /min Height 67 inches 5'7" Weight 250.00 lb BMI (Body Mass Index) 39.2 kg/m2 BSA (Body Surface Area) 2.22 m2 O2 % BldC Oximetry 100 % 08/16/2015 8:52am BP Systolic Sitting Right Arm 139 mmHg BP Diastolic Sitting Right Arm 85 mmHg Heart Rate 122 /min Height 66.75 inches 5'6.75" Weight 249.00 lb BMI (Body Mass Index) 39.3 kg/m2 BSA (Body Surface Area) 2.21 m2 02/01/2012 10:30am BP Systolic Sitting Left Arm 124 mmHg BP Diastolic Sitting Left Arm 80 mmHg Height 66.5 inches 5'6.50" Weight 216.00 lb BMI (Body Mass Index) 34.3 kg/m2 BSA (Body Surface Area) 2.08 m2 Results Test Date Facility Test Result H/L Range Note Laboratory test 08/20/2018 [facility] Immunoglobulin 19 IU/mL 0-100 1, [address],[place], [place] [id number] [phone] CBC W/Automated 08/20/2018 [facility] White Blood Count 9.2 K/uL N 3.1-10.7 Diff [address] [place] [address] [phone] Red Blood Count 4.74 M/uL N 3.90-5.40 Hemoglobin 13.7 gm/dL N 11.6-15.8 Hematocrit 43.3 % N 36.0-46.1 Mean Cell Volume 91.4 fl N 80.9-99.0 Mean Corpuscular HGB 28.9 pg N 25.9-32.7 Mean Corpuscular HGB Conc 31.6 g/dL N 30.8-34.3 Platelet Count 248 K/uL N 155-360 Red Cell Distri Width SD 44.5 fl N 36-47 Red Cell Distri Width %CV 13.6 % N 11.7-14.4 Mean Platelet Volume 11.0 fL N 8.9-12.4 Neut% 62.8 % N 40.4-72.8 Lymph % 26.8 % N 20.0-42.0 Humphreys % 7.5 % N 4.3-13.2 Eo% 2.4 % N 0.0-6.6 Bas% 0.5 % N 0.0-1.1 Neut# 5.80 K/uL N 1.8-7.0 Lymph # 2.47 K/uL N 1.0-4.0 Humphreys # 0.69 K/uL N 0.3-0.9 Eos # 0.22 K/uL N 0.0-0.5 Baso # 0.05 K/uL N 0.0-0.1 Basic Metabolic Panel 08/20/2018 [facility] Glucose 92 mg/dL N 74-[address] [place] [address] [phone] BUN 11 mg/dL N 7-18 Creatinine 0.8 mg/dL N 0.6-1.3 Glom Filtration Rate, Estimate >60 mL/min >60 If >60 mL/min >60 3 BUN/Creat 13.7 ratio Sodium 140 mmol/L N 136-145 Potassium 4.1 mmol/L N 3.5-5.1 Chloride 108 mmol/L High 98-107 Carbon Dioxide 28 mmol/L N 21-32 Anion Gap 4 mEq/L Low 8-16 Calcium 8.5 mg/dL N 8.5-10.1 Allergens,Zone 1 08/20/2018 [facility] mRast Class (Text (SEE NOTE) [address] Only) [place] [address] [phone] D Pteronyssinus <0.10 kU/L Class 0 D Farinae Mite <0.10 kU/L Class 0 Cat Hair/Dander <0.10 kU/L Class 0 Dog Hair/Dander <0.10 kU/L Class 0 Bluegrass,[place] <0.10 kU/L Class 0 Bermuda Grass <0.10 kU/L Class 0 Bahia Grass <0.10 kU/L Class 0 Cockroach,Faroese <0.10 kU/L Class 0 Penicillium Not <0.10 kU/L Class 0 Cladosporium Herbarum <0.10 kU/L Class 0 Apergillis Fumigatus Ige <0.10 kU/L Class 0 Mucor Racemosus <0.10 kU/L Class 0 Alternaria Alternata <0.10 kU/L Class 0 Stemphylium Bot <0.10 kU/L Class 0 Birch,White <0.10 kU/L Class 0 Denver,White <0.10 kU/L Class 0 Elm,Faroese (White) <0.10 kU/L Class 0 Lakhwinder,White <0.10 kU/L Class 0 Hazelnut Tree T004 Ige <0.10 kU/L Class 0 Ventura,White <0.10 kU/L Class 0 Santa [place],White <0.10 kU/L Class 0 Bayamon,Mountain <0.10 kU/L Class 0 Ragweed,Short/ <0.10 kU/L Class 0 Mugwort <0.10 kU/L Class 0 Plantain,Nicaraguan <0.10 kU/L Class 0 Pigweed,Rough <0.10 kU/L Class 0 Sheep [place] (DO <0.10 kU/L Class 0 Nettle <0.10 kU/L Class 0 Maple/Albert Lea Ige T001 <0.10 kU/L Class 0 CBC 08/15/2016 [facility] White Blood Count 8.6 K/uL N 3.1-10.7 5 [address] [place] [address] [phone] Red Blood Count 4.02 M/uL N 3.90-5.40 Hemoglobin 9.6 gm/dL Low 11.6-15.8 Hematocrit 32.0 % Low 36.0-46.1 Mean Cell Volume 79.6 fl Low 80.9-99.0 Mean Corpuscular HGB 23.9 pg Low 25.9-32.7 Mean Corpuscular HGB Conc 30.0 g/dL Low 30.8-34.3 Platelet Count 245 K/uL N 155-360 Red Cell Distri Width %CV 28.0 % High 11.7-14.4 Mean Platelet Volume 11.4 fL N 8.9-12.4 CBS W/Automated Diff 08/08/2016 [facility] White Blood 8.3 K/uL N 3.1-10.[address] [place] [address] [phone] Red Blood Count 4.84 M/uL N 3.90-5.40 Hemoglobin 11.0 gm/dL Low 11.6-15.8 Hematocrit 37.2 % N 36.0-46.1 Mean Cell Volume 76.9 fl Low 80.9-99.0 Mean Corpuscular HGB 22.7 pg Low 25.9-32.7 Mean Corpuscular HGB Conc 29.6 g/dL Low 30.8-34.3 Platelet Count 301 K/uL N 155-360 Red Cell Distri Width SD 49.7 fl High 3-47 Red Cell Distri Width %CV 26.3 % High 11.7-14.4 Mean Platelet Volume 11.7 fL N 8.9-12.4 Neut% 59.7 % N 40.4-72.8 Lymph % 30.0 % N 17.0-46.1 Humphreys % 7.5 % N 4.3-13.2 Eo% 2.2 % N 0.0-6.6 Bas% 0.6 % N 0.0-1.1 Neut# 4.94 K/uL N 1.8-7.0 Lymph # 2.48 K/uL N 1.8-7.0 Humphreys # 0.62 K/uL N 0.3-0.9 Eos # 0.18 K/uL N 0.0-0.5 Baso # 0.05 K/uL N 0.0-0.1 Vitamin B12 And 08/08/2016 [facility] Vitamin B12 578 pg/mL N 193-986 Folate [address] [place] [address] [phone] Folic Acid 9.0 ng/mL N 3.1-17.5 Iron-Tibc-%Sat 08/08/2016 [facility] Serum Iron 84 g/dL N 50-170 [address] [place] [address] [phone] Total Iron Binding Capacity 392 g/dL N 250-450 Transferrin %Saturation 21 % N 12-57 Laboratory test 08/08/2016 [facility] Ferritin 838 ng/mL High 8-252 finding [address] [place] [address] [phone] LDH 07/13/2016 [facility] LDH 202 U/L N 84-246 7 [address] [place] [address] [phone] Reflex add FT3? N Reflex add FT4? Y Vitamin B12 And 07/13/2016 [facility] Vitamin B12 416 pg/mL N 193-986 Folate [address] [place], [place] [address] [phone] Folic Acid 12.5 ng/mL N 3.1-17.5 Reflex add FT3? N Reflex add FT4? Y Iron-Tibc-%Sat 07/13/2016 [facility] Serum Iron 21 g/dL Low 50-170 [address] [place] [address] [phone] Total Iron Binding Capacity 552 g/dL High 250-450 Transferrin %Saturation 4 % Low 12-57 Reflex add FT3? N Reflex add FT4? Y Reticulocyte 07/13/2016 [facility] Retic % 0.9 % N 0.5-1.8 Count,Automated [address] [place], [place] [id number] [phone] Comprehensive Metabolic 07/13/2016 [facility] Glucose 49 mg/dL Low 74-106 Panel [address] [place], [place] [address] [phone] BUN 8 mg/dL N 7-18 Creatinine 0.8 mg/dL N 0.6-1.3 Glom Filtration Rate, Estimate >60 mL/min N >60 If >60 mL/min N >60 8 BUN/Creat 10.0 ratio N Sodium 142 mmol/L N 136-145 Potassium 3.7 mmol/L N 3.5-5.1 Chloride 108 mmol/L High 98-107 Carbon Dioxide 26 mmol/L N 21-32 Anion Gap 8 mEq/L N 8-16 Calcium 8.5 mg/dL N 8.5-10.1 Total Protein 7.8 g/dL N 6.4-8.2 Albumin 3.9 g/dL N 3.4-5.0 Globulin 3.9 g/dL N 1.9-4.3 Alb/Glob 1.0 ratio N Bilirubin,Total 0.3 mg/dL N 0.2-1.0 Sgot/Ast 31 U/L N 15-37 SGPT/Alt 34 U/L N 12-78 Alkaline Phosphatase 77 U/L N 45-117 Reflex add FT3? N Reflex add FT4? Y TSH Reflex FT4 07/13/2016 [facility] Thyroid Stim 0.93 uIU/mL N 0.30-4.20 And/Or FT3 [address] [place] [address] [phone] Reflex add FT3? N Reflex add FT4? Y Laboratory test 07/13/2016 [facility] Haptoglobin 83 mg/dL N 34-200 finding [address] [place] [address] [phone] Hemoglobinopathy 07/13/2016 [facility] Hgb A 98.3 % High 94.0-98.0 Profile [address] [place] [address] [phone] Hgb, 0.0 % N 0.0-2.0 Hgb S 0.0 % N 0.0 Hgb C 0.0 % N 0.0 Hgb A2 1.7 % N 0.7-3.1 Interpretation: (SEE NOTE) N 9 Immunoglobulins 07/13/2016 [facility] Immunoglobulin 986 N 700-1600 A/G/M, QN, Ser [address],Quant,Serum mg/[place] [address] [phone] Immunoglobulin A 278 mg/dL N 87-352 Immunoglobulin M 82 mg/dL N 26-217 10 Ferritin 07/13/2016 [facility] Ferritin 5 ng/mL Low 8-252 [address] [place] [address] [phone] Reflex add FT3? N Reflex add FT4? Y Surgical Pathology 10/03/2012 [facility] Laboratory S RUN DATE: [phone] <SEE NOTE> 1 J41.0 J31.0 2 Test(s) 867583-Q401-GhF Cockroach, Faroese; 711256- X103-QiT Monty Sanchez were developed and had performance characteristics determined by [employer]. These tests have not been cleared or approved by the U.S. Food and Drug Administration. The FDA has determined that such clearance or approval is not necessary. These tests are used for clinical purposes. These should not be regarded as investigational or for research. Performed at: [facility] [employer] [id number] Cupola Repairer: Mikaela Decker MD, Phone: [phone] Note: Persistent reduction for 3 months or more in an eGFR <60 mL/min/1.73 m2 defines CKD. Patients with eGFR values >/=60 mL/min/1.73 m2 may also have CKD if evidence of persistent proteinuria is present. The original MDRD equation for estimated GFR is not valid for patients less than 18 years of age. Additional information may be found at www.kdoqi.org. 4 Levels of Specific IgE Class Description of Class ----- < 0.10 0 Negative 0.10 - 0.31 0/I Equivocal/Low 0.32 - 0.55 I Low 0.56 - 1.40 II Moderate 1.41 - 3.90 III High 3.91 - 19.00 IV Very High 19.01 - 100.00 V Very High >100.00 Very High 5 25807,50705,79593 N92.0,R10.2,N83.29 6 D50.9 7 D64.9 8 Note: Persistent reduction for 3 months or more in an eGFR <60 mL/min/1.73 m2 defines CKD. Patients with eGFR values >/=60 mL/min/1.73 m2 may also have CKD if evidence of persistent proteinuria is present. The original MDRD equation for estimated GFR is not valid for patients less than 18 years of age. Additional information may be found at www.kdoqi.org. 9 Normal adult hemoglobin present. Performed at: [facility] [employer] [id number] Cupola Repairer: Lakeshia Celaya MD, Phone: [phone] Performed at: [facility] [employer] [id number] Cupola Repairer: Lakeshia Celaya MD, Phone: [phone] RUN DATE: 10/04/12 [facility] LAB LIVE PAGE 1 RUN TIME: [address] [place] [address] Specimen Inquiry Name: NEETU DARLING : [address]: Saul Pineda MD Acct: [id number] Unit: [id number] AGE: 37 Location: [facility] Re10/03/12 SEX: F Status: [place] [facility] [place] SPEC: [id number] LYDIA: 10/03/12- SUBM DR: Saul Pineda MD REQ: [id number] RECD: 10/03/12 STATUS: CHRISSY KENNEDY DR: Zoey Lopez PA _ ORDERED: LEVEL III FINAL DIAGNOSIS Knee, left, shavings: Fragments of hyperplastic synovium. PRE-OPERATIVE DIAGNOSIS Meniscal tear left knee GROSS DESCRIPTION The specimen is received in formalin labeled Neetu Darling, Raovingkathy Left Knee and consists of a 0.6 x 0.3 x 0.2 cm. aggregate of yellow and white tissue bits. Curriculum Development Manager section submitted, one cassette. Signed (signature on file) Bradford Sheets MD 1640 END OF REPORT * ML=Testing performed at Main Lab DEPARTMENT OF PATHOLOGY, [address] [place] [address] Bradford Sheets M.D. Director [facility] Permit #[id number] Procedures Date Code Description Status 11/20/2017 Asp./Injection major joint Completed 11/08/2017 Asp./Injection major joint Completed 11/01/2017 Asp./Injection major joint Completed 10/23/2017 Asp./Injection major joint Completed 10/09/2017 38851 Radiology, Toe(S) 2 Views Completed 09/13/2017 07878 Radiology, Toe(S) 2 Views Completed 08/30/2017 18990 Radiology, Toe(S) 2 Views Completed 08/14/2017 09722 Radiology, Toe(S) 2 Views Completed 06/21/2016 27929 Radiology, Knee 3 Views Completed 06/21/2016 01853 Radiology, Knee 3 Views Completed 09/27/2015 Asp./Injection major joint Completed 2015 68040 Radiology, Knee 3 Views Completed 08/27/2015 34526 Chrondroplasty debridement/shaving of articular cartilage Completed 08/16/2015 59681 Radiology, Knee 3 Views Completed 03/13/2012 49891 Anesthesia, Hysteroscopy, Hystersalpingography Completed 02/15/2012 02197 Apply Cast Gauntlet Completed 02/15/2012 Asp/Injection small joint/bursa (ie-fingers,toes) Completed 08/04/2011 28422 Chrondroplasty debridement/shaving of articular cartilage Completed 05/31/2011 74153 Anesthesia, Delivery Completed 07/28/2010 Asp./Injection major joint Completed 07/21/2010 Asp./Injection major joint Completed 07/15/2010 Asp./Injection major joint Completed 07/08/2010 Asp./Injection major joint Completed 06/29/2010 Asp./Injection major joint Completed 12/01/2009 Asp./Injection major joint Completed Encounters Type Date Location Provider Dx Diagnosis Office Visit 09/24/2018 Pulmonology Giovana Lei PA J41.0 Simple chronic 9:00a bronchitis J31.0 Chronic rhinitis Office Visit 08/20/2018 3:00p Pulmonology Chi Flores MD J41.0 Simple chronic bronchitis J31.0 Chronic rhinitis Office Visit 12/25/2017 Blake Baig M25.562 Pain in left knee 2:00p Office Katrin Rehman Office Visit 12/18/2017 Blake Baig M25.562 Pain in left knee 8:45a Office Katrin Rehman Office Visit 10/23/2017 Blake Baig M22.42 Chondromalacia 8:45a Office Katrin Rehman patellae, left knee Office Visit 08/08/2016 Oncology Office Magalys, D50.9 Iron deficiency 9:30a Valerio, anemia, unspecified D51.9 Vitamin B12 deficiency anemia, unspecified Office Visit 07/13/2016 10:00a Oncology Office Magalys, D64.9 Anemia, Valerio, unspecified D51.9 Vitamin B12 deficiency anemia, unspecified D50.9 Iron deficiency anemia, unspecified K29.00 Acute gastritis without bleeding Office Visit 06/21/2016 Orthopaedic Trevor M25.562 Pain in left knee 9:15a [facility] 12/28/2015 Ori Franks, M22.42 Chondromalacia 8:30a Office Katrin patellae, left knee Office Visit 08/16/2015 Ori Franks, M25.562 Pain in left knee 9:00a Office Katrin M22.42 Chondromalacia patellae, left knee Office Visit 02/22/2012 11:36a Surgical Office Herminio Spence 789.03 Pain Abdominal MD Estefani Right Lower Quadrant Office Visit 02/01/2012 11:00a Orthopaedic Office Adryan, 727.04 Tenosynovitis Thai Velasquez Radial Styloid , FACS E885.9 Fall From Other Slipping,Tripping, Or Stumbling Plan of Treatment Future Appointment(s):03/25/2019 10:00 am - Giovana Lei PA at [facility]/ 26/2019 - Giovana Lei, PAJ41.0 Simple chronic bronchitisComments:Awaiting AAT and PFT results and we will call you. Your blood work is not significant for allergies.We can hold on trial of gabapentin until testing of Neti Pot and the other pulmonary testing resultsreturned.Follow up:6 [id number] Chronic rhinitisComments:Please start using Neti pot daily for assistance in reducing post nasal drip and subsequent reduction of cough.AllNew Medication:Advair Diskus 100-50 mcg/Dose - 1 inhalation twice daily, please rinse your mouth after every use.
[2018-10-17 13:06] VITALS: BP 118/67
--- NOTE | 2018-10-17 13:21 | ED ---
Lower Extremity - HPI Summary HPI Summary: 43 yr old female with left foot injury. Onset prior to arrival. She tripped over a carpet and twisted her left foot. Pain is moderate, worse with standing. Pain is located over the 3/4/5 toes and lateral foot. Denies ankle pain. - History of Current Complaint Chief Complaint: UCLowerExtremity Stated Complaint: LEFT FOOT INJURY Time Seen by Provider: 10/17/18 13:08 Hx Last Menstrual Period: ablation and partial hysterectomy Pain Intensity: 8 - Allergies/Home Medications Allergies/Adverse Reactions: Allergies Allergy/AdvReac Type Severity Reaction Status Date / Time tramadol Allergy Severe Rash Verified 10/17/18 13:03 NSAIDS (Non-Steroidal Allergy Intermediate See Comment Verified 10/17/18 13:03 Anti-Inflamma Penicillins Allergy Intermediate Hives Verified 10/17/18 13:03 ENVIRONMENTAL Allergy Intermediate ichy eyes, Uncoded 10/17/18 13:03 sneeze PMH/Surg Hx/FS Hx/Imm Hx Endocrine/Hematology History: Reports: Hx Anemia Denies: Hx Anticoagulant Therapy, Hx Diabetes, Hx Thyroid Disease Cardiovascular History: Denies: Hx Congestive Heart Failure, Hx Deep Vein Thrombosis, Hx Hypertension , Hx Myocardial Infarction, Hx Pacemaker/ICD, Other Cardiovascular Problems/ Disorders Respiratory History: Reports: Hx Asthma - A CHILD resolved since 20 years old Denies: Hx Chronic Obstructive Pulmonary Disease (COPD), Hx Lung Cancer, Hx Pneumonia, Hx Pulmonary Embolism, Other Respiratory Problems/Disorders GI History: Reports: Hx Gastroesophageal Reflux Disease - on mediation, Other GI Disorders - Gastric bypass, cholecystectomy Denies: Hx Gall Bladder Disease, Hx Gastrointestinal Bleed, Hx Ulcer, Hx Urosepsis History: Denies: Hx Kidney Stones, Hx Renal Disease, Other Problems/Disorders Musculoskeletal History: Reports: Hx Arthritis - LEFT KNEE, Other Musculoskeletal History - Left knee arthroscopy-meniscus tear repair, Pain in right knee Denies: Hx Bursitis, Hx Tendonitis Sensory History: Denies: Hx Contacts or Glasses, Hx Hearing Aid Opthamlomology History: Denies: Hx Contacts or Glasses Neurological History: Reports: Hx Migraine Denies: Hx Dementia, Hx Seizures, Hx Transient Ischemic Attacks (TIA), Other Neuro Impairments/Disorders Psychiatric History: Reports: Hx Depression - ON MEDS Denies: Hx Anxiety, Hx Schizophrenia, Hx Bipolar Disorder - Cancer History Hx Chemotherapy: No - Surgical History Surgery Procedure, Year, and Place: GALLBLADDER 2006, [place]. GASTRIC BYPASS, 2008, [place]. C SECTION, 2010, [facility]. LEFT KNEE 07/2011, [place]. Left knee, [place]. hysterectomy 2017. Left knee, [place]. APPENDECTOMY , 2011, [facility]. Partial Hysterectomy, 07/2015. Tonsillectomy, 07/2015. Sinus surgery 2018. Left Knee arthroscopy 2018 Hx Anesthesia Reactions: No Infectious Disease History: No Infectious Disease History: Denies: Hx Clostridium Difficile, Hx Hepatitis, Hx Human Immunodeficiency Virus (HIV), Hx of Known/Suspected MRSA, Hx Shingles, Hx Tuberculosis, Hx Known/ Suspected VRE, Hx Known/Suspected VRSA, History Other Infectious Disease, Traveled Outside the in Last 30 Days - Family History Known Family History: Positive: Other - COPD. Negative: Cardiac Disease, Hypertension, Diabetes - Social History Alcohol Use: Rare Substance Use Type: Reports: None Smoking Status (MU): Never Smoked Tobacco Have You Smoked in the Last Year: No Review of Systems Constitutional: Negative Positive: Other - foot pain left All Other Systems Reviewed And Are Negative: Yes Physical Exam Triage Information Reviewed: Yes Vital Signs On Initial Exam: Initial Vitals Temp Pulse Resp BP Pulse Ox 97.6 F 70 15 118/67 100 10/17/18 13:02 10/17/18 13:02 10/17/18 13:02 10/17/18 13:02 10/17/18 13:02 Vital Signs Reviewed: Yes Appearance: Positive: Well-Appearing, No Pain Distress Skin: Positive: Warm, Skin Color Reflects Adequate Perfusion Head/Face: Positive: Normal Head/Face Inspection Eyes: Positive: EOMI ENT: Positive: Normal ENT inspection Respiratory/Lung Sounds: Positive: Clear to Auscultation Cardiovascular: Positive: Pulses are Symmetrical in both Upper and Lower Extremities Abdomen Description: Negative: Distended Musculoskeletal: Positive: Other - left laundry machine tender over lateral foot and over the 3/4/5 MP area. STS over lateral 5th metatarsal. Neurological: Positive: Alert, Oriented to Person Place, Time, CN Intact II-III Psychiatric: Positive: Normal Procedures - Splinting Left Lower Extremity Location: left foot/ankle lower leg Hand-Made Type: orthoglass Splint: Posterior splint Pre-Proc Neuro Vasc Exam: normal Post-Proc Neuro Vasc Exam: normal Diagnostics - Vital Signs Vital Signs Temp Pulse Resp BP Pulse Ox 10/17/18 13:02 97.6 F 70 15 118/67 100 - Laboratory Lab Statement: Any lab studies that have been ordered have been reviewed, and results considered in the medical decision making process. - Radiology foot left Radiology Interpretation Completed By: Radiologist - minimal displaced spiral 5th metatarsal fx. Lower Extremity Course/Dx - Course Course Of Treatment: 43 yr old with minimal displaced 5th metatarsal FX. Plan Patient splinted by me and referral to Ortho. No weight bearing. Crutches given. - Diagnoses Provider Diagnoses: Displaced fracture, Fracture of 5th metatarsal Discharge - Sign-Out/Discharge Documenting (check all that apply): Patient Departure All imaging exams completed and their final reports reviewed: Yes - Discharge Plan Condition: Good Disposition: HOME Patient Education Materials: Foot Fracture in Adults (ED) Referrals: Rajiv Saldana MD [Primary Care Provider] - Parveen Brown MD [Medical Doctor] - 2 Days - Billing Disposition and Condition Condition: GOOD Disposition: Home
== END 2018-10-17 13:53 | disposition home or self-care (01) ==
LOC: UCCORT 12:21
DX: S92.355A Nondisplaced fracture of fifth metatarsal bone, left foot, initial encounter for closed fracture (principal); W22.8XXA Striking against or struck by other objects, initial encounter; X50.0XXA Overexertion from strenuous movement or load, initial encounter; Y92.9 Unspecified place or not applicable; Z88.6 Allergy status to analgesic agent; Z88.5 Allergy status to narcotic agent; Z88.0 Allergy status to penicillin; Z91.048 Other nonmedicinal substance allergy status
CPT/HCPCS: 99212; G0463

== ENCOUNTER 2023-06-11 08:30 | Inpatient (IN) ==
[2023-06-11] MEDS ORDERED: LORazepam 2 mg VIAL 1 ml IV PUSH PRN ×2 (09:33)
[2023-06-11] MEDS ORDERED: Al Hydrox/Mg Hydrox/Simet LIQ 30 ML UDC PO PRN (09:33)
[2023-06-11] MEDS ORDERED: Lorazepam PYXIS KEY PRN (13:11)
[2023-06-12] MEDS ORDERED: Metoclopramide 5 MG/ML VIAL (10 mg) IV ONE (16:43)
[2023-06-13 10:15] VITALS: BP 130/72
== END 2023-06-13 16:05 | disposition home or self-care (01) | DRG 756 ==
LOC: MEDTELE 08:31
PROVIDERS: ADMIT Psychiatry & Neurology Neurology; ATTEND Internal Medicine